=== PATIENT | female | born 1945 | race Caucasian/White ===

== ENCOUNTER 2018-03-24 09:39 | Outpatient (CLI) | payer MEDICARE ==
--- NOTE | 2018-03-24 15:44 | MMO ---
BILATERAL SCREENING MAMMOGRAM: Date: 03/24/18 COMPARISON: 01/21/17, 11/20/15, and 10/05/14. HISTORY: Screening mammography. FINDINGS: This patient's mammogram was interpreted with the assistance of computer-aided detection. There are scattered fibroglandular densities present. Benign calcification is noted bilaterally. There is no dominant mass or architectural distortion. No concerning microcalcification is seen. IMPRESSION: BIRADS 2: Benign Finding(s) Annual screening mammography recommended. POS: ISABELL
== END 2018-03-24 09:40 | disposition home or self-care (01) ==
LOC: SCSMAMMO 09:39
PROVIDERS: ATTEND Family Medicine
DX: Z12.31 Encounter for screening mammogram for malignant neoplasm of breast (principal)
CPT/HCPCS: 77067

== ENCOUNTER 2019-06-02 10:07 | Outpatient (CLI) | payer MEDICARE ==
--- NOTE | 2019-06-02 11:42 | MMO ---
Bilateral MAMMO Bilat Screen [facility]. CLINICAL HISTORY: Patient is 74 years old and is seen for screening. The patient has no family history of breast cancer. The patient has no personal history of cancer. VIEWS: The views performed were: bilateral craniocaudal and bilateral mediolateral oblique. FILMS COMPARED: The present examination has been compared to prior imaging studies performed at [facility] on 11/20/2015, 01/21/2017 and 03/24/2018, and at [facility] on 10/05/2014. This study has been interpreted with the assistance of computer-aided detection. MAMMOGRAM FINDINGS: There are scattered fibroglandular densities. Finding 1: There are stable benign appearing calcifications with associated post-surgical scar seen in the left breast. Finding 2: There are multiple stable nodules of varying size seen in both breasts. There are no suspicious masses, suspicious calcifications, or new areas of architectural distortion. IMPRESSION: THERE IS NO MAMMOGRAPHIC EVIDENCE OF MALIGNANCY. A ROUTINE FOLLOW-UP MAMMOGRAM IN 1 YEAR IS RECOMMENDED. ACR BI-RADS Category 2 - Benign finding MAMMOGRAPHY NOTE: 1. A negative mammogram report should not delay a biopsy if a dominant of clinically suspicious mass is present. 2. Approximately 10% to 15% of breast cancers are not detected by mammography. 3. Adenosis and dense breasts may obscure an underlying neoplasm. Reported by: JUAN JOSE ROCA MD Electonically Signed: [id number]
== END 2019-06-02 10:08 | disposition home or self-care (01) ==
LOC: SCSMAMMO 10:07
PROVIDERS: ATTEND Family Medicine
DX: Z12.31 Encounter for screening mammogram for malignant neoplasm of breast (principal)
CPT/HCPCS: 77067